=== PATIENT | male | born 1955 | race Caucasian/White ===

== ENCOUNTER → 2017-04-25 | Outpatient (CLI) | payer OTHER | END | disposition home or self-care (01) | LOC: RAD 13:00 | DX: R13.14 Dysphagia, pharyngoesophageal phase (principal) | CPT/HCPCS: 74230; 92611 ==

== ENCOUNTER 2017-06-10 08:35 | Emergency (ER) | payer OTHER ==
[2017-06-10 09:19] LABS: ADD MAN DIFF? NO
[2017-06-10 09:21] LABS: WHITE BLOOD COUNT 6.2 10^3/ul (4.8-10.8)
[2017-06-10 09:21] LABS: BASOPHIL # 0.1 10^3/ul (0.0-0.1); BASOPHILS % 1.1 % (0.0-2.0); EOSINOPHILS # 0.1 10^3/ul (0.0-0.5); EOSINOPHILS % 2.1 % (0.0-7.0); HEMATOCRIT 37.2 % (42.0-52.0); HEMOGLOBIN 12.7 g/dl (14.0-18.0); LYMPHOCYTES # 0.9 10^3/ul (0.8-2.9); MEAN CORPUSCULAR HEMOGLOBIN 30.8 pg (29.0-33.0); MEAN CORPUSCULAR HGB CONC 34.1 g/dl (32.0-37.0); MEAN CORPUSCULAR VOLUME 90.3 fl (82.0-101.0); MEAN PLATELET VOLUME 10.5 fl (7.4-10.4); MONOCYTE # 0.5 10^3/ul (0.3-0.9); MONOCYTES % 7.7 % (0.0-11.0); NEUTROPHIL # 4.6 10^3/ul (1.6-7.5); NEUTROPHILS % 73.5 % (39.0-77.0); PLATELET COUNT 191 10^3/UL (140-415); RED BLOOD COUNT 4.12 10^6/ul (4.70-6.10); RED CELL DISTRIBUTION WIDTH 12.3 % (11.5-14.5)
[2017-06-10] MEDS: ASPIRIN 325 MG TAB PO (09:26)
[2017-06-10] MEDS: LORAZEPAM 1 MG TAB PO (09:26)
[2017-06-10] MEDS ORDERED: LORAZEPAM 2 MG INJ IV (09:30)
[2017-06-10 09:42] LABS: INR 0.89; PROTIME 12.1 Sec (11.9-14.9); PT RATIO 0.9
[2017-06-10 09:43] LABS: ALANINE AMINOTRANSFERASE 49 IU/L (13-69); ALBUMIN 4.1 g/dl (3.3-4.9); ALBUMIN/GLOBULIN RATIO 1.36; ALKALINE PHOSPHATASE 72 IU/L (42-121); ANION GAP 15 (8-16); ASPARTATE AMINO TRANSFERASE 34 IU/L (15-46); BILIRUBIN,INDIRECT 0.1 mg/dl (0-1.1); BILIRUBIN,TOTAL 0.1 mg/dl (0.2-1.3); BLOOD UREA NITROGEN 15 mg/dl (7-20); CALCIUM 8.9 mg/dl (8.4-10.2); CARBON DIOXIDE 26 mmol/L (21-31); CHLORIDE 107 mmol/L (97-110); CREATINE KINASE 164 IU/L (23-200); CREATININE 0.98 mg/dl (0.61-1.24); GLUCOSE 174 mg/dl (70-220); POTASSIUM 4.6 mmol/L (3.5-5.1); SODIUM 143 mmol/L (135-144); TOTAL PROTEIN 7.1 g/dl (6.1-8.1)
[2017-06-10 09:51] LABS: PARTIAL THROMBOPLASTIN TIME 26.9 Sec (25.0-35.0)
[2017-06-10 09:54] LABS: B-TYPE NATRIURETIC PEPTIDE 55 PG/ML (0-125); CK INDEX 0.5
[2017-06-10 09:55] LABS: CK-MB 0.79 ng/ml (0.0-2.4)
[2017-06-10 10:17] LABS: TROPONIN-I < 0.012 ng/ml (0.00-0.12)
[2017-06-10] MEDS: KETOROLAC 60 MG INJ IM (10:58)
== END 2017-06-10 11:04 | disposition home or self-care (01) ==
LOC: E/R 08:35
DX: M94.0 Chondrocostal junction syndrome [Tietze] (principal); F41.9 Anxiety disorder, unspecified; I10 Essential (primary) hypertension; E11.9 Type 2 diabetes mellitus without complications; Z79.84 Long term (current) use of oral hypoglycemic drugs
CPT/HCPCS: 71045; 80053; 82550; 82553; 83880; 84484; 85025; 85610; 85730; 93005; 96372; 99285-25

== ENCOUNTER 2017-11-08 13:53 | Emergency (ER) | payer OTHER ==
[2017-11-08 14:34] LABS: ADD MAN DIFF? NO
[2017-11-08 14:38] LABS: BASOPHIL # 0.1 10^3/ul (0.0-0.1); BASOPHILS % 0.6 % (0.0-2.0); EOSINOPHILS # 0.1 10^3/ul (0.0-0.5); EOSINOPHILS % 0.7 % (0.0-7.0); HEMATOCRIT 37.1 % (42.0-52.0); HEMOGLOBIN 12.2 g/dl (14.0-18.0); LYMPHOCYTES # 1.7 10^3/ul (0.8-2.9); LYMPHOCYTES % 19.9 % (15.0-51.0); MEAN CORPUSCULAR HGB CONC 32.9 g/dl (32.0-37.0); MEAN CORPUSCULAR VOLUME 91.4 fl (82.0-101.0); MEAN PLATELET VOLUME 10.8 fl (7.4-10.4); MONOCYTE # 0.5 10^3/ul (0.3-0.9); MONOCYTES % 6.1 % (0.0-11.0); NEUTROPHIL # 6.3 10^3/ul (1.6-7.5); NEUTROPHILS % 72.1 % (39.0-77.0); PLATELET COUNT 238 10^3/UL (140-415); RED BLOOD COUNT 4.06 10^6/ul (4.70-6.10); RED CELL DISTRIBUTION WIDTH 12.6 % (11.5-14.5)
[2017-11-08 14:38] LABS: WHITE BLOOD COUNT 8.7 10^3/ul (4.8-10.8)
[2017-11-08] MEDS: ONDANSETRON 4 MG INJ IV (14:39)
[2017-11-08] MEDS: morphine 4 MG/ML VIAL IV (14:39)
[2017-11-08 14:56] LABS: ALANINE AMINOTRANSFERASE 51 IU/L (13-69); ALBUMIN 4.3 g/dl (3.3-4.9); ALBUMIN/GLOBULIN RATIO 1.26; ALKALINE PHOSPHATASE 79 IU/L (42-121); ANION GAP 13 (8-16); ASPARTATE AMINO TRANSFERASE 38 IU/L (15-46); BILIRUBIN,INDIRECT 0.4 mg/dl (0-1.1); BILIRUBIN,TOTAL 0.4 mg/dl (0.2-1.3); BLOOD UREA NITROGEN 17 mg/dl (7-20); CALCIUM 9.1 mg/dl (8.4-10.2); CARBON DIOXIDE 23 mmol/L (21-31); CHLORIDE 109 mmol/L (97-110); CREATININE 1.05 mg/dl (0.61-1.24); GLUCOSE 135 mg/dl (70-220); LIPASE 441 U/L (23-300); SODIUM 140 mmol/L (135-144); TOTAL PROTEIN 7.7 g/dl (6.1-8.1)
[2017-11-08] MEDS: LIDOCAINE/MYLANTA 40 ML BTL PO (15:03)
[2017-11-08 15:10] LABS: TROPONIN-I 0.012 ng/ml (0.000-0.120)
[2017-11-08 17:49] LABS: ADD UMIC NO; UR ASCORBIC ACID NEGATIVE (NEGATIVE); UR BILIRUBIN (Dip) NEGATIVE (NEGATIVE); UR BLOOD (Dip) NEGATIVE (NEGATIVE); UR CLARITY CLEAR (CLEAR); UR COLOR STRAW (YELLOW); UR GLUCOSE (Dip) NEGATIVE (NEGATIVE); UR KETONES (Dip) NEGATIVE (NEGATIVE); UR LEUKOCYTE ESTERASE (Dip) NEGATIVE Leu/ul (NEGATIVE); UR NITRITE (Dip) NEGATIVE (NEGATIVE); UR SPECIFIC GRAVITY (Dip) 1.008 (1.003-1.030); UR TOTAL PROTEIN (Dip) NEGATIVE (NEGATIVE); UR UROBILINOGEN (Dip) NEGATIVE (NEGATIVE)
== END 2017-11-08 17:55 | disposition home or self-care (01) ==
LOC: E/R 13:53
DX: R10.12 Left upper quadrant pain (principal); I10 Essential (primary) hypertension; E11.9 Type 2 diabetes mellitus without complications; Z79.84 Long term (current) use of oral hypoglycemic drugs
CPT/HCPCS: 36415; 74176; 80053; 81003; 83690; 84484; 85025; 93005; 96374; 96375; 99285-25

== ENCOUNTER 2017-11-11 13:48 | Emergency (ER) | payer OTHER ==
[2017-11-11 15:04] LABS: LIPASE 153 U/L (23-300)
[2017-11-11] MEDS: FAMOTIDINE 20 MG TAB PO (15:13)
[2017-11-11] MEDS: LIDOCAINE/MYLANTA 40 ML BTL PO (15:13)
[2017-11-11] MEDS: KETOROLAC 30 MG INJ IM (15:13)
[2017-11-11] MEDS: BELLADONNA/PHENOBARBITAL TAB PO (15:13)
== END 2017-11-11 16:28 | disposition home or self-care (01) ==
LOC: E/R 13:48
DX: K29.00 Acute gastritis without bleeding (principal); I10 Essential (primary) hypertension; Z79.84 Long term (current) use of oral hypoglycemic drugs
CPT/HCPCS: 36415; 83690; 93005; 96372; 99284-25

== ENCOUNTER 2017-12-28 11:29 | Day surgery (SDC) | payer OTHER ==
[~2017-12-28 11:29] MED LIST: CEFAZOLIN 1 GM INJ
[2017-12-28] MEDS: HEPARIN 1000 UNITS/ML 10 ML INJ (12:29)
[2017-12-28] MEDS: THROMBIN 5000 UNIT VIAL (12:30)
[2017-12-28] MEDS: POLYMYXIN/BACITRACIN 1L IRRIG (12:30)
[2017-12-28] MEDS ORDERED: GELATIN SIZE 100 SPONGE (12:30)
[2017-12-28] MEDS ORDERED: D5W-0.45 NACL + KCL 20 MEQ 1,000 ML IV (12:52)
[2017-12-28] MEDS ORDERED: CEPASTAT LOZENGE MT (13:00)
[2017-12-28] MEDS ORDERED: DIPHENHYDRAMINE 50 MG INJ IV ×2 (13:00→15:00)
[2017-12-28] MEDS ORDERED: HYDROCODONE/APAP (5/325) TAB PO (13:00)
[2017-12-28] MEDS ORDERED: ONDANSETRON 4 MG INJ IV ×2 (13:00→15:00)
[2017-12-28] MEDS ORDERED: ACETAMINOPHEN 325 MG TAB PO (13:00)
[2017-12-28] MEDS ORDERED: CYCLOBENZAPRINE 10 MG TAB PO (13:00)
[2017-12-28] MEDS ORDERED: PROCHLORPERAZINE 10 MG TAB PO (13:00)
[2017-12-28] MEDS ORDERED: CEFAZOLIN 1 GM/50 ML (PMX) 50 ML IVPB (13:00)
[2017-12-28] MEDS ORDERED: DIPHENHYDRAMINE 25 MG CAP PO (13:00)
[2017-12-28] MEDS ORDERED: NALOXONE (0.4 MG/ML) INJ IV (13:00)
[2017-12-28] MEDS ORDERED: MIDAZOLAM 1 MG/ML 2 ML INJ (13:06)
[2017-12-28] MEDS: CEFAZOLIN 2 GM/50 ML (PMX) 50 ML IVPB (13:22)
[2017-12-28] MEDS ORDERED: SUCCINYLCHOLINE CHLORIDE 100 MG/5 ML SYG IV (13:27)
[2017-12-28] MEDS ORDERED: LIDOCAINE 2% (SDV) 5 ML INJ (13:27)
[2017-12-28] MEDS ORDERED: FAMOTIDINE 20 MG INJ (13:27)
[2017-12-28] MEDS ORDERED: METOCLOPRAMIDE 10 MG INJ (13:27)
[2017-12-28] MEDS ORDERED: ROCURONIUM 50 MG INJ (13:27)
[2017-12-28] MEDS ORDERED: PROPOFOL 20 ML (13:27)
[2017-12-28] MEDS ORDERED: ONDANSETRON 4 MG INJ (13:27)
[2017-12-28] MEDS ORDERED: hydrALAzine 20 MG INJ (13:30)
[2017-12-28] MEDS ORDERED: EPHEDrine SULFATE 50 MG/5 ML SYG (13:54)
[2017-12-28] MEDS: CA CHLORIDE 10% 10 ML SYRINGE (14:09)
[2017-12-28] MEDS ORDERED: SUGAMMADEX SODIUM 200 MG/2 ML VIAL IV (14:18)
[2017-12-28] MEDS: BUPIVACAINE 0.25% (MPF) 30 ML INJ INJ (14:20)
[2017-12-28] MEDS ORDERED: BUPIVACAINE 0.25% (MPF) 30 ML INJ (14:20)
[2017-12-28] MEDS ORDERED: ACETAMINOPHEN 1000MG/100ML IV 100 ML (14:24)
[2017-12-28] MEDS ORDERED: FENTAnyl 50 MCG/ML VIAL IV (15:00)
[2017-12-28] MEDS ORDERED: LABETALOL HCL 20MG INJ IV (15:00)
[2017-12-28] MEDS ORDERED: PROCHLORPERAZINE 10 MG INJ IV (15:00)
[2017-12-28] MEDS ORDERED: hydrALAzine 20 MG INJ IV (15:00)
[2017-12-28] MEDS ORDERED: MEPERIDINE 25 MG INJ IV (15:00)
[2017-12-28] MEDS: HYDROmorphONE 1 MG/5 ML IV SYRINGE IV ×2 (15:05→15:17)
[2017-12-28] MEDS: HYDROmorphONE 0.5 MG/0.5 ML SYG IV (15:24)
[2017-12-28] MEDS: HYDROCODONE/APAP (5/325) TAB PO (15:39)
== END 2017-12-28 16:35 | disposition home or self-care (01) ==
LOC: REC 11:29 → SDS 11:29
DX: T84.498A Other mechanical complication of other internal orthopedic devices, implants and grafts, initial encounter (principal); Y79.3 Surgical instruments, materials and orthopedic devices (including sutures) associated with adverse incidents; Y83.8 Other surgical procedures as the cause of abnormal reaction of the patient, or of later complication, without mention of misadventure at the time of the procedure; E11.9 Type 2 diabetes mellitus without complications; I10 Essential (primary) hypertension
CPT/HCPCS: 22849; 72110; 82962; 86999; 88300

== ENCOUNTER 2018-01-24 12:34 | Day surgery (SDC) | payer OTHER ==
[2018-01-24] MEDS ORDERED: LIDOCAINE 100 MG SYRINGE ×2 (14:43→15:01)
[2018-01-24] MEDS ORDERED: PHENYLephrine (100 MCG/ML) 5ML SYG (14:43)
[2018-01-24] MEDS ORDERED: EPHEDrine 50 MG INJ (14:43)
[2018-01-24] MEDS ORDERED: PROPOFOL 60 ML (14:43)
== END 2018-01-24 17:14 | disposition home or self-care (01) ==
LOC: GIL 12:34
DX: Z86.010 Personal history of colon polyps (principal); K29.50 Unspecified chronic gastritis without bleeding; I10 Essential (primary) hypertension; E11.9 Type 2 diabetes mellitus without complications
CPT/HCPCS: 43239; 82962; 88305; 88312

== ENCOUNTER 2018-03-04 14:56 | Emergency (ER) | payer OTHER ==
[2018-03-04 18:47] LABS: ADD MAN DIFF? NO
[2018-03-04 18:49] LABS: BASOPHIL # 0.1 10^3/ul (0.0-0.1); BASOPHILS % 0.8 % (0.0-2.0); EOSINOPHILS # 0.3 10^3/ul (0.0-0.5); EOSINOPHILS % 4.7 % (0.0-7.0); HEMATOCRIT 38.2 % (42.0-52.0); HEMOGLOBIN 12.5 g/dl (14.0-18.0); LYMPHOCYTES # 1.2 10^3/ul (0.8-2.9); LYMPHOCYTES % 19.5 % (15.0-51.0); MEAN CORPUSCULAR HEMOGLOBIN 29.7 pg (29.0-33.0); MEAN CORPUSCULAR HGB CONC 32.7 g/dl (32.0-37.0); MEAN CORPUSCULAR VOLUME 90.7 fl (82.0-101.0); MEAN PLATELET VOLUME 12.1 fl (7.4-10.4); MONOCYTE # 0.5 10^3/ul (0.3-0.9); MONOCYTES % 7.7 % (0.0-11.0); NEUTROPHILS % 66.8 % (39.0-77.0); PLATELET COUNT 220 10^3/UL (140-415); RED BLOOD COUNT 4.21 10^6/ul (4.70-6.10); RED CELL DISTRIBUTION WIDTH 12.6 % (11.5-14.5)
[2018-03-04 18:53] LABS: INR 0.85; PARTIAL THROMBOPLASTIN TIME 27.4 Sec (23.0-35.0); PROTIME 11.7 Sec (11.9-14.9); PT RATIO 0.9
[2018-03-04 18:58] LABS: ALANINE AMINOTRANSFERASE 56 IU/L (13-69); ALBUMIN 3.7 g/dl (3.3-4.9); ALBUMIN/GLOBULIN RATIO 1.05; ALKALINE PHOSPHATASE 111 IU/L (42-121); ANION GAP 10 (5-13); ASPARTATE AMINO TRANSFERASE 52 IU/L (15-46); BLOOD UREA NITROGEN 17 mg/dl (7-20); CALCIUM 9.4 mg/dl (8.4-10.2); CARBON DIOXIDE 27 mmol/L (21-31); CHLORIDE 102 mmol/L (97-110); CREATININE 1.13 mg/dl (0.61-1.24); Estimated GFR > 60 mL/min (>60); GLUCOSE 321 mg/dl (70-220); MAGNESIUM 1.8 mg/dl (1.7-2.5); POTASSIUM 4.4 mmol/L (3.5-5.1); SODIUM 139 mmol/L (135-144); TOTAL PROTEIN 7.2 g/dl (6.1-8.1)
[2018-03-04 19:03] LABS: ADD UMIC YES; UR ASCORBIC ACID 40 mg/dL (NEGATIVE); UR BILIRUBIN (Dip) NEGATIVE (NEGATIVE); UR BLOOD (Dip) NEGATIVE (NEGATIVE); UR CLARITY CLEAR (CLEAR); UR COLOR YELLOW (YELLOW); UR GLUCOSE (Dip) 3+ mg/dL (NEGATIVE); UR KETONES (Dip) NEGATIVE (NEGATIVE); UR LEUKOCYTE ESTERASE (Dip) NEGATIVE Leu/ul (NEGATIVE); UR MUCUS FEW /HPF (NONE SEEN); UR NITRITE (Dip) NEGATIVE (NEGATIVE); UR RBC 1 /HPF (0-5); UR SPECIFIC GRAVITY (Dip) 1.027 (1.003-1.030); UR TOTAL PROTEIN (Dip) 1+ mg/dl (NEGATIVE); UR UROBILINOGEN (Dip) NEGATIVE (NEGATIVE); UR WBC 1 /HPF (0-5)
[2018-03-04 19:10] LABS: TROPONIN-I < 0.012 ng/ml (0.000-0.120)
[2018-03-04] MEDS: SOD CHLORIDE 0.9% 1,000 ML IV (19:16)
[2018-03-04] MEDS: ASPIRIN 325 MG TAB PO (21:20)
== END 2018-03-04 21:25 | disposition home or self-care (01) ==
LOC: E/R 14:56
DX: R29.810 Facial weakness (principal); E11.65 Type 2 diabetes mellitus with hyperglycemia; I10 Essential (primary) hypertension; Z79.84 Long term (current) use of oral hypoglycemic drugs
CPT/HCPCS: 36415; 70450; 71045; 80053; 81001; 82962; 83735; 84484; 85025; 85610; 85730; 93005; 99285-25

== ENCOUNTER 2018-03-07 07:59 | Inpatient (IN) | payer OTHER ==
[2018-03-07] MEDS: SOD CHLORIDE 0.9% 1,000 ML IV (08:41)
[2018-03-07 08:46] LABS: ADD MAN DIFF? NO
[2018-03-07 08:48] LABS: BASOPHIL # 0.1 10^3/ul (0.0-0.1); BASOPHILS % 1.2 % (0.0-2.0); EOSINOPHILS # 0.2 10^3/ul (0.0-0.5); EOSINOPHILS % 3.5 % (0.0-7.0); HEMATOCRIT 40.8 % (42.0-52.0); HEMOGLOBIN 13.4 g/dl (14.0-18.0); LYMPHOCYTES # 1.5 10^3/ul (0.8-2.9); LYMPHOCYTES % 23.3 % (15.0-51.0); MEAN CORPUSCULAR HEMOGLOBIN 29.7 pg (29.0-33.0); MEAN CORPUSCULAR HGB CONC 32.8 g/dl (32.0-37.0); MEAN CORPUSCULAR VOLUME 90.5 fl (82.0-101.0); MEAN PLATELET VOLUME 11.3 fl (7.4-10.4); MONOCYTE # 0.4 10^3/ul (0.3-0.9); MONOCYTES % 6.5 % (0.0-11.0); NEUTROPHIL # 4.3 10^3/ul (1.6-7.5); NEUTROPHILS % 64.3 % (39.0-77.0); PLATELET COUNT 206 10^3/UL (140-415); RED BLOOD COUNT 4.51 10^6/ul (4.70-6.10); RED CELL DISTRIBUTION WIDTH 12.8 % (11.5-14.5)
[2018-03-07 08:48] LABS: WHITE BLOOD COUNT 6.6 10^3/ul (4.8-10.8)
[2018-03-07 09:06] LABS: ALANINE AMINOTRANSFERASE 70 IU/L (13-69); ALBUMIN 4.6 g/dl (3.3-4.9); ALBUMIN/GLOBULIN RATIO 1.17; ALKALINE PHOSPHATASE 120 IU/L (42-121); ANION GAP 11 (5-13); ASPARTATE AMINO TRANSFERASE 78 IU/L (15-46); BILIRUBIN,INDIRECT 0.3 mg/dl (0-1.1); BILIRUBIN,TOTAL 0.3 mg/dl (0.2-1.3); BLOOD UREA NITROGEN 13 mg/dl (7-20); CALCIUM 9.4 mg/dl (8.4-10.2); CARBON DIOXIDE 26 mmol/L (21-31); CHLORIDE 104 mmol/L (97-110); CREATININE 0.91 mg/dl (0.61-1.24); Estimated GFR > 60 mL/min (>60); GLUCOSE 332 mg/dl (70-220); MAGNESIUM 1.6 mg/dl (1.7-2.5); PHOSPHORUS 3.3 mg/dl (2.5-4.9); POTASSIUM 4.7 mmol/L (3.5-5.1); SODIUM 141 mmol/L (135-144); TOTAL PROTEIN 8.5 g/dl (6.1-8.1)
[2018-03-07 09:07] LABS: LACTIC ACID 1.9 mmol/L (0.5-2.0)
[2018-03-07 09:07] LABS: INR 0.83; PROTIME 11.5 Sec (11.9-14.9); PT RATIO 0.9
[2018-03-07 09:16] LABS: TROPONIN-I < 0.012 ng/ml (0.000-0.120)
[2018-03-07 09:19] LABS: HEMOGLOBIN A1C 8.2 % (0-5.9)
[2018-03-07 09:21] LABS: ADD UMIC YES; UR ASCORBIC ACID NEGATIVE (NEGATIVE); UR BILIRUBIN (Dip) NEGATIVE (NEGATIVE); UR BLOOD (Dip) NEGATIVE (NEGATIVE); UR CLARITY CLEAR (CLEAR); UR COLOR YELLOW (YELLOW); UR GLUCOSE (Dip) 3+ mg/dL (NEGATIVE); UR KETONES (Dip) NEGATIVE (NEGATIVE); UR LEUKOCYTE ESTERASE (Dip) NEGATIVE Leu/ul (NEGATIVE); UR NITRITE (Dip) NEGATIVE (NEGATIVE); UR RBC 0 /HPF (0-5); UR SPECIFIC GRAVITY (Dip) 1.021 (1.003-1.030); UR TOTAL PROTEIN (Dip) 1+ mg/dl (NEGATIVE); UR UROBILINOGEN (Dip) NEGATIVE (NEGATIVE); UR WBC 1 /HPF (0-5)
[2018-03-07 09:48] LABS: MODE ROOM AIR; MetHgb Venous 0.3 %; Sample Type Blood venous; Site OTHER; Venous COHb 0.5 %; Venous Fraction OxyHgb 62.3 %; Venous Oxygen Sat 62.8 mmHG (55.0-75.0); Venous Total Hemglobin 13.1 g/dl
[2018-03-07] MEDS: INSULIN LISPRO 100 UNIT/ML VIAL SC (10:36)
[2018-03-07] MEDS ORDERED: NACL 0.9% 3 ML SYG IV (13:00)
[2018-03-07] MEDS ORDERED: GLUCAGON 1 MG INJ IM (13:00)
[2018-03-07] MEDS ORDERED: ONDANSETRON 4 MG INJ IV (13:00)
[2018-03-07] MEDS ORDERED: GLUCOSE GEL 15 GRAM TUBE PO ×2 (13:00)
[2018-03-07] MEDS ORDERED: GLUCOSE GEL 15 GRAM TUBE BUCCAL (13:00)
[2018-03-07] MEDS ORDERED: DEXTROSE 50% 50 ML SYRINGE IV ×2 (13:00)
[2018-03-07] MEDS ORDERED: hydrALAzine 20 MG INJ IV (14:00)
[2018-03-07] MEDS: SOD CHLORIDE 0.9% 100 ML (15:11)
[2018-03-07] MEDS: IOHEXOL 100 ML (15:11)
[2018-03-07] MEDS: LINAGLIPTIN 5 MG TABLET PO (15:18)
[2018-03-07] MEDS: GABAPENTIN 300 MG CAP PO ×2 (15:18→20:25)
[2018-03-07] MEDS: FERROUS SULFATE (EC) 325 MG TAB PO ×2 (15:18→20:25)
[2018-03-07] MEDS: MAGNESIUM SULFATE 2 GM/50 ML 50 ML IVPB (15:21)
[2018-03-07] MEDS: metFORMIN 500 MG TAB PO (17:55)
[2018-03-07] MEDS: INSULIN GLARGINE [LANTus] (100 UNITS/ML) SYG SC (18:03)
[2018-03-07] MEDS: INSULIN ASPART [NOVOLOG] 3 ML PEN SC ×2 (18:03→20:32)
[2018-03-07] MEDS: DOCUSATE SODIUM 100 MG CAP PO (20:25)
[2018-03-07] MEDS: LISINOPRIL 20 MG TAB PO (20:25)
[2018-03-07] MEDS: ATORVASTATIN 10 MG TAB PO (20:25)
[2018-03-07] MEDS ORDERED: NON-FORMULARY/PATIENT OWN MED (Sitagliptin Phos/Metformin HCl (Janumet 50-1,000 mg Tablet) PO (21:00)
[2018-03-07] MEDS ORDERED: NON-FORMULARY/PATIENT OWN MED (Lovastatin* 10 MG) PO (21:00)
[2018-03-07] MEDS: ACETAMINOPHEN 325 MG TAB PO (21:18)
[2018-03-08] MEDS: ZOLPIDEM 5 MG TAB PO (00:08)
[2018-03-08] MEDS: ACCU-CHEK XX (02:45)
[2018-03-08] MEDS: PANTOPRAZOLE (EC) 40 MG TAB PO (06:23)
[2018-03-08] MEDS: metFORMIN 500 MG TAB PO (08:01)
[2018-03-08] MEDS: INSULIN ASPART [NOVOLOG] 3 ML PEN SC (08:06)
[2018-03-08] MEDS: INSULIN GLARGINE [LANTus] (100 UNITS/ML) SYG SC (08:12)
[2018-03-08 08:19] LABS: ADD MAN DIFF? NO
[2018-03-08 08:22] LABS: BASOPHIL # 0.1 10^3/ul (0.0-0.1); BASOPHILS % 1.1 % (0.0-2.0); EOSINOPHILS # 0.2 10^3/ul (0.0-0.5); EOSINOPHILS % 3.5 % (0.0-7.0); HEMATOCRIT 36.3 % (42.0-52.0); HEMOGLOBIN 11.8 g/dl (14.0-18.0); LYMPHOCYTES # 1.5 10^3/ul (0.8-2.9); LYMPHOCYTES % 23.8 % (15.0-51.0); MEAN CORPUSCULAR HEMOGLOBIN 29.4 pg (29.0-33.0); MEAN CORPUSCULAR HGB CONC 32.5 g/dl (32.0-37.0); MEAN CORPUSCULAR VOLUME 90.5 fl (82.0-101.0); MEAN PLATELET VOLUME 12.3 fl (7.4-10.4); MONOCYTE # 0.4 10^3/ul (0.3-0.9); MONOCYTES % 6.5 % (0.0-11.0); NEUTROPHIL # 4.2 10^3/ul (1.6-7.5); NEUTROPHILS % 64.3 % (39.0-77.0); PLATELET COUNT 193 10^3/UL (140-415); RED BLOOD COUNT 4.01 10^6/ul (4.70-6.10); RED CELL DISTRIBUTION WIDTH 12.7 % (11.5-14.5)
[2018-03-08 08:22] LABS: WHITE BLOOD COUNT 6.5 10^3/ul (4.8-10.8)
[2018-03-08 08:56] LABS: ALANINE AMINOTRANSFERASE 67 IU/L (13-69); ALBUMIN 3.7 g/dl (3.3-4.9); ALBUMIN/GLOBULIN RATIO 1.23; ALKALINE PHOSPHATASE 102 IU/L (42-121); ANION GAP 7 (5-13); ASPARTATE AMINO TRANSFERASE 64 IU/L (15-46); BILIRUBIN,INDIRECT 0.3 mg/dl (0-1.1); BILIRUBIN,TOTAL 0.3 mg/dl (0.2-1.3); BLOOD UREA NITROGEN 14 mg/dl (7-20); CARBON DIOXIDE 26 mmol/L (21-31); CHLORIDE 106 mmol/L (97-110); CHOL/HDL RATIO 5.2 RATIO; CHOLESTEROL 168 mg/dl (100-200); CREATININE 0.98 mg/dl (0.61-1.24); Estimated GFR > 60 mL/min (>60); GLUCOSE 228 mg/dl (70-220); HDL CHOLESTEROL 32 mg/dl (30-78); LDL CHOLESTEROL,CALCULATED 111 mg/dl; MAGNESIUM 1.8 mg/dl (1.7-2.5); PHOSPHORUS 3.8 mg/dl (2.5-4.9); POTASSIUM 4.3 mmol/L (3.5-5.1); SODIUM 139 mmol/L (135-144); TOTAL PROTEIN 6.7 g/dl (6.1-8.1); TRIGLYCERIDES 126 mg/dl (0-149)
[2018-03-08] MEDS: AL HYDROX/MG HYDROX/SIMETH 30 ML CUP PO (09:30)
[2018-03-08] MEDS: ASPIRIN (EC) 81 MG TAB PO (09:30)
[2018-03-08] MEDS: LINAGLIPTIN 5 MG TABLET PO (09:31)
[2018-03-08] MEDS: GABAPENTIN 300 MG CAP PO (09:31)
[2018-03-08] MEDS: FERROUS SULFATE (EC) 325 MG TAB PO (09:31)
[2018-03-08] MEDS: SENNA TAB PO (09:31)
[2018-03-08] MEDS: FINASTERIDE 5 MG TAB PO (09:31)
[2018-03-08] MEDS: LISINOPRIL 20 MG TAB PO (09:32)
[2018-03-08] MEDS: AMLODIPINE 10 MG TAB PO (09:32)
[2018-03-08] MEDS: CYCLOBENZAPRINE 10 MG TAB PO (09:32)
[2018-03-08] MEDS ORDERED: ALFUZOSIN (SR) 10 MG TAB PO ×2 (21:00)
== END 2018-03-08 12:20 | disposition home or self-care (01) | DRG 103 ==
LOC: E/R 07:59 → TEL 11:01
DX: G43.909 Migraine, unspecified, not intractable, without status migrainosus (principal); E11.65 Type 2 diabetes mellitus with hyperglycemia; I10 Essential (primary) hypertension; N40.0 Benign prostatic hyperplasia without lower urinary tract symptoms; E11.40 Type 2 diabetes mellitus with diabetic neuropathy, unspecified; E78.00 Pure hypercholesterolemia, unspecified; Z87.891 Personal history of nicotine dependence; R59.9 Enlarged lymph nodes, unspecified; F41.9 Anxiety disorder, unspecified
CPT/HCPCS: 36415; 70450; 70496; 70498; 70551; 80053; 80061; 81001; 82803; 82962; 83036; 83605; 83735; 84100; 84443; 84484; 85025; 85610; 85730; 92610; 93005; 93306; 96372; 97161; 99285-25

== ENCOUNTER 2018-03-14 08:54 | Day surgery (SDC) | payer OTHER ==
[2018-03-14] MEDS ORDERED: DIPHENHYDRAMINE 50 MG INJ IV (11:00)
[2018-03-14] MEDS ORDERED: HYDROmorphONE 1 MG/5 ML IV SYRINGE IV ×3 (11:00)
[2018-03-14] MEDS ORDERED: ONDANSETRON 4 MG INJ IV (11:00)
[2018-03-14] MEDS ORDERED: OXYCODONE/ACETAMINOPHEN (5/325) TAB PO ×2 (11:00)
[2018-03-14] MEDS ORDERED: hydrALAzine 20 MG INJ IV (11:00)
[2018-03-14] MEDS ORDERED: LABETALOL HCL 20MG INJ IV (11:00)
[2018-03-14] MEDS ORDERED: PROPOFOL 20 ML (11:01)
[2018-03-14] MEDS ORDERED: METOCLOPRAMIDE 10 MG INJ (11:01)
[2018-03-14] MEDS ORDERED: FENTAnyl 50 MCG/ML VIAL (11:01)
[2018-03-14] MEDS ORDERED: MIDAZOLAM 1 MG/ML 2 ML INJ (11:01)
[2018-03-14] MEDS ORDERED: CEFAZOLIN 1 GM INJ (11:01)
[2018-03-14] MEDS ORDERED: ONDANSETRON 4 MG INJ (11:01)
[2018-03-14] MEDS: MEPERIDINE 25 MG INJ IV (13:15)
[2018-03-14] MEDS ORDERED: morphine 2 MG INJ IV (13:30)
== END 2018-03-14 14:22 | disposition home or self-care (01) ==
LOC: SDS 08:54
DX: M23.221 Derangement of posterior horn of medial meniscus due to old tear or injury, right knee (principal); M94.261 Chondromalacia, right knee; I10 Essential (primary) hypertension; E11.9 Type 2 diabetes mellitus without complications
CPT/HCPCS: 29881; 82962

== ENCOUNTER 2018-07-31 12:43 | Emergency (ER) | payer MEDICARE, MEDICAID, OTHER ==
[2018-07-31] MEDS: IBUPROFEN 800 MG TAB PO (14:41)
[2018-07-31] MEDS: ACETAMINOPHEN 500 MG TAB PO (14:41)
== END 2018-07-31 15:25 | disposition home or self-care (01) ==
LOC: FTE 12:43
DX: R05 Cough (principal); I10 Essential (primary) hypertension; E11.9 Type 2 diabetes mellitus without complications; Z79.84 Long term (current) use of oral hypoglycemic drugs
CPT/HCPCS: 71045; 87400; 99284-25

== ENCOUNTER 2018-08-06 15:59 | Observation (INO) | payer MEDICARE, MEDICAID ==
[2018-08-06 16:50] LABS: ADD MAN DIFF? NO
[2018-08-06] MEDS: ASPIRIN 81 MG TAB PO (16:52)
[2018-08-06] MEDS: IBUPROFEN 600 MG TAB PO (16:52)
[2018-08-06 16:55] LABS: BASOPHIL # 0.1 10^3/ul (0.0-0.1); BASOPHILS % 0.8 % (0.0-2.0); EOSINOPHILS # 0.4 10^3/ul (0.0-0.5); EOSINOPHILS % 5.1 % (0.0-7.0); HEMATOCRIT 37.4 % (42.0-52.0); LYMPHOCYTES # 2.1 10^3/ul (0.8-2.9); LYMPHOCYTES % 28.6 % (15.0-51.0); MEAN CORPUSCULAR HEMOGLOBIN 29.1 pg (29.0-33.0); MEAN CORPUSCULAR HGB CONC 32.1 g/dl (32.0-37.0); MEAN CORPUSCULAR VOLUME 90.8 fl (82.0-101.0); MEAN PLATELET VOLUME 10.5 fl (7.4-10.4); MONOCYTE # 0.5 10^3/ul (0.3-0.9); MONOCYTES % 6.9 % (0.0-11.0); NEUTROPHIL # 4.2 10^3/ul (1.6-7.5); NEUTROPHILS % 57.9 % (39.0-77.0); PLATELET COUNT 215 10^3/UL (140-415); RED BLOOD COUNT 4.12 10^6/ul (4.70-6.10); RED CELL DISTRIBUTION WIDTH 13.4 % (11.5-14.5)
[2018-08-06 16:55] LABS: WHITE BLOOD COUNT 7.2 10^3/ul (4.8-10.8)
[2018-08-06 17:14] LABS: ALANINE AMINOTRANSFERASE 50 IU/L (13-69); ALBUMIN/GLOBULIN RATIO 1.29; ALKALINE PHOSPHATASE 76 IU/L (42-121); ANION GAP 8 (5-13); ASPARTATE AMINO TRANSFERASE 45 IU/L (15-46); BILIRUBIN,INDIRECT 0.3 mg/dl (0-1.1); BILIRUBIN,TOTAL 0.3 mg/dl (0.2-1.3); BLOOD UREA NITROGEN 18 mg/dl (7-20); CALCIUM 9.1 mg/dl (8.4-10.2); CARBON DIOXIDE 22 mmol/L (21-31); CHLORIDE 109 mmol/L (97-110); CREATININE 1.18 mg/dl (0.61-1.24); Estimated GFR > 60 mL/min (>60); GLUCOSE 129 mg/dl (70-220); INR 0.96; LIPASE 167 U/L (23-300); POTASSIUM 4.6 mmol/L (3.5-5.1); PROTIME 12.9 Sec (11.9-14.9); SODIUM 139 mmol/L (135-144); TOTAL PROTEIN 7.1 g/dl (6.1-8.1)
[2018-08-06 17:15] LABS: PARTIAL THROMBOPLASTIN TIME 27.4 Sec (23.0-35.0)
[2018-08-06 17:24] LABS: B-TYPE NATRIURETIC PEPTIDE 24 PG/ML (0-125); TROPONIN-I < 0.012 ng/ml (0.000-0.120)
[2018-08-06] MEDS ORDERED: ACETAMINOPHEN 325 MG TAB PO (20:30)
[2018-08-06] MEDS ORDERED: ONDANSETRON 4 MG INJ IV (20:30)
[2018-08-06] MEDS ORDERED: MAGNESIUM HYDROXIDE 30ML CUP PO (20:30)
[2018-08-06] MEDS ORDERED: NACL 0.9% 3 ML SYG IV (20:30)
[2018-08-06] MEDS ORDERED: IBUPROFEN 600 MG TAB PO (20:30)
[2018-08-06] MEDS ORDERED: NON-FORMULARY/PATIENT OWN MED (Eplerenone (Inspra) 25 MG) PO (21:00)
[2018-08-06] MEDS ORDERED: ACCU-CHEK XX (21:00)
[2018-08-06] MEDS: NITROGLYCERIN (SL) 0.4 MG TAB SL (22:10)
[2018-08-06] MEDS: ENOXAPARIN 30 MG/0.3 ML SYG SC (22:15)
[2018-08-06] MEDS ORDERED: DEXTROSE 50% 50 ML SYRINGE IV ×2 (22:30)
[2018-08-06] MEDS ORDERED: GLUCOSE GEL 15 GRAM TUBE BUCCAL (22:30)
[2018-08-06] MEDS ORDERED: GLUCAGON 1 MG INJ IM (22:30)
[2018-08-06] MEDS ORDERED: GLUCOSE GEL 15 GRAM TUBE PO ×2 (22:30)
[2018-08-06] MEDS: ACCU-CHEK XX (23:10)
[2018-08-06] MEDS: GABAPENTIN 300 MG CAP PO (23:40)
[2018-08-06] MEDS: morphine 2 MG INJ IV (23:40)
[2018-08-06] MEDS: FAMOTIDINE 20 MG TAB PO (23:43)
[2018-08-06] MEDS: ALFUZOSIN (SR) 10 MG TAB PO (23:43)
[2018-08-06] MEDS: SENNA TAB PO (23:43)
[2018-08-06] MEDS: LISINOPRIL 20 MG TAB PO (23:46)
[2018-08-06] MEDS: ZOLPIDEM 5 MG TAB PO (23:53)
[2018-08-07] MEDS: ENOXAPARIN 30 MG/0.3 ML SYG SC ×2 (00:03→08:43)
[2018-08-07 01:11] LABS: CREATINE KINASE 313 IU/L (23-200)
[2018-08-07 01:24] LABS: CK INDEX 0.6; CK-MB 1.83 ng/ml (0.0-2.4); TROPONIN-I < 0.012 ng/ml (0.000-0.120)
[2018-08-07] MEDS: morphine 2 MG INJ IV ×4 (03:34→20:49)
[2018-08-07] MEDS: ACCU-CHEK XX ×4 (07:25→21:00)
[2018-08-07] MEDS: SENNA TAB PO ×2 (08:25→20:41)
[2018-08-07] MEDS: metFORMIN 500 MG TAB PO ×2 (08:25→17:03)
[2018-08-07] MEDS: FAMOTIDINE 20 MG TAB PO ×2 (08:25→20:41)
[2018-08-07] MEDS: FINASTERIDE 5 MG TAB PO (08:26)
[2018-08-07] MEDS: glipiZIDE 10 MG TAB PO ×2 (08:26→17:03)
[2018-08-07] MEDS: AMLODIPINE 10 MG TAB PO (08:27)
[2018-08-07] MEDS: GABAPENTIN 300 MG CAP PO ×2 (08:27→20:41)
[2018-08-07] MEDS: EMPAGLIFLOZIN 10 MG TABLET PO (08:27)
[2018-08-07] MEDS: PANTOPRAZOLE (EC) 40 MG TAB PO (08:27)
[2018-08-07] MEDS: LISINOPRIL 20 MG TAB PO ×2 (08:28→20:41)
[2018-08-07] MEDS: ASPIRIN (EC) 325 MG TAB PO (08:28)
[2018-08-07 08:44] LABS: ADD MAN DIFF? NO
[2018-08-07 08:49] LABS: BASOPHIL # 0.1 10^3/ul (0.0-0.1); BASOPHILS % 1.1 % (0.0-2.0); EOSINOPHILS # 0.3 10^3/ul (0.0-0.5); EOSINOPHILS % 4.3 % (0.0-7.0); HEMATOCRIT 37.4 % (42.0-52.0); HEMOGLOBIN 12.2 g/dl (14.0-18.0); LYMPHOCYTES # 1.7 10^3/ul (0.8-2.9); LYMPHOCYTES % 26.1 % (15.0-51.0); MEAN CORPUSCULAR HGB CONC 32.6 g/dl (32.0-37.0); MEAN PLATELET VOLUME 11.4 fl (7.4-10.4); MONOCYTE # 0.4 10^3/ul (0.3-0.9); MONOCYTES % 6.6 % (0.0-11.0); NEUTROPHILS % 61.3 % (39.0-77.0); PLATELET COUNT 210 10^3/UL (140-415); RED CELL DISTRIBUTION WIDTH 13.6 % (11.5-14.5)
[2018-08-07 08:49] LABS: WHITE BLOOD COUNT 6.6 10^3/ul (4.8-10.8)
[2018-08-07 09:11] LABS: ALANINE AMINOTRANSFERASE 52 IU/L (13-69); ALBUMIN 3.7 g/dl (3.3-4.9); ALBUMIN/GLOBULIN RATIO 1.27; ALKALINE PHOSPHATASE 77 IU/L (42-121); ANION GAP 10 (5-13); ASPARTATE AMINO TRANSFERASE 42 IU/L (15-46); BILIRUBIN,INDIRECT 0.1 mg/dl (0-1.1); BILIRUBIN,TOTAL 0.1 mg/dl (0.2-1.3); BLOOD UREA NITROGEN 18 mg/dl (7-20); CALCIUM 9.2 mg/dl (8.4-10.2); CARBON DIOXIDE 24 mmol/L (21-31); CHLORIDE 105 mmol/L (97-110); CHOL/HDL RATIO 3.4 RATIO; CHOLESTEROL 133 mg/dl (100-200); CREATININE 0.93 mg/dl (0.61-1.24); Estimated GFR > 60 mL/min (>60); GLUCOSE 155 mg/dl (70-220); HDL CHOLESTEROL 39 mg/dl (30-78); LDL CHOLESTEROL,CALCULATED 54 mg/dl; MAGNESIUM 1.6 mg/dl (1.7-2.5); POTASSIUM 4.6 mmol/L (3.5-5.1); SODIUM 139 mmol/L (135-144); TOTAL PROTEIN 6.6 g/dl (6.1-8.1); TRIGLYCERIDES 202 mg/dl (0-149)
[2018-08-07 09:14] LABS: CREATINE KINASE 261 IU/L (23-200)
[2018-08-07 09:21] LABS: CK INDEX 0.5; CK-MB 1.28 ng/ml (0.0-2.4); TROPONIN-I < 0.012 ng/ml (0.000-0.120)
[2018-08-07 09:25] LABS: HEMOGLOBIN A1C 8.7 % (0-5.9)
[2018-08-07 13:17] LABS: CREATINE KINASE 243 IU/L (23-200)
[2018-08-07 13:30] LABS: CK INDEX 0.5; CK-MB 1.12 ng/ml (0.0-2.4); TROPONIN-I < 0.012 ng/ml (0.000-0.120)
[2018-08-07] MEDS: ATORVASTATIN 10 MG TAB PO (20:40)
[2018-08-07] MEDS: ALFUZOSIN (SR) 10 MG TAB PO (20:44)
[2018-08-07] MEDS: [UNRECOGNIZED DRUG - OTHER] XX (22:30)
[2018-08-08] MEDS: [UNRECOGNIZED DRUG - OTHER] XX ×3 (05:29→22:30)
[2018-08-08] MEDS: PANTOPRAZOLE (EC) 40 MG TAB PO (07:17)
[2018-08-08] MEDS: morphine 2 MG INJ IV ×3 (07:17→21:59)
[2018-08-08] MEDS: ACCU-CHEK XX ×4 (07:25→21:00)
[2018-08-08] MEDS: glipiZIDE 10 MG TAB PO ×2 (07:25→17:19)
[2018-08-08] MEDS: metFORMIN 500 MG TAB PO ×2 (07:43→17:19)
[2018-08-08] MEDS: GABAPENTIN 300 MG CAP PO ×2 (08:51→21:01)
[2018-08-08] MEDS: SENNA TAB PO ×2 (08:52→21:01)
[2018-08-08] MEDS: LISINOPRIL 20 MG TAB PO ×2 (08:52→21:01)
[2018-08-08] MEDS: FINASTERIDE 5 MG TAB PO (08:52)
[2018-08-08] MEDS: FAMOTIDINE 20 MG TAB PO ×2 (08:53→21:01)
[2018-08-08] MEDS: AMLODIPINE 10 MG TAB PO (08:53)
[2018-08-08] MEDS: ASPIRIN (EC) 325 MG TAB PO (08:53)
[2018-08-08] MEDS: EMPAGLIFLOZIN 10 MG TABLET PO (08:57)
[2018-08-08] MEDS: ENOXAPARIN 30 MG/0.3 ML SYG SC (08:57)
[2018-08-08] MEDS: DOCUSATE SODIUM 100 MG CAP PO (10:13)
[2018-08-08] MEDS: REGADENOSON 0.4 MG/5 ML SYG (12:30)
[2018-08-08] MEDS: ATORVASTATIN 10 MG TAB PO (21:00)
[2018-08-08] MEDS: ALFUZOSIN (SR) 10 MG TAB PO (21:01)
[2018-08-08] MEDS: ZOLPIDEM 5 MG TAB PO (22:35)
[2018-08-09] MEDS: [UNRECOGNIZED DRUG - OTHER] XX ×2 (06:11→14:30)
[2018-08-09 07:19] LABS: ANION GAP 11 (5-13); BLOOD UREA NITROGEN 24 mg/dl (7-20); CALCIUM 9.4 mg/dl (8.4-10.2); CARBON DIOXIDE 24 mmol/L (21-31); CHLORIDE 105 mmol/L (97-110); CREATININE 1.05 mg/dl (0.61-1.24); Estimated GFR > 60 mL/min (>60); GLUCOSE 120 mg/dl (70-220); POTASSIUM 4.3 mmol/L (3.5-5.1); SODIUM 140 mmol/L (135-144)
[2018-08-09] MEDS: ACCU-CHEK XX ×2 (07:25→11:20)
[2018-08-09] MEDS: PANTOPRAZOLE (EC) 40 MG TAB PO (08:28)
[2018-08-09] MEDS: GABAPENTIN 300 MG CAP PO (08:29)
[2018-08-09] MEDS: SENNA TAB PO (08:29)
[2018-08-09] MEDS: FINASTERIDE 5 MG TAB PO (08:29)
[2018-08-09] MEDS: glipiZIDE 10 MG TAB PO (08:29)
[2018-08-09] MEDS: EMPAGLIFLOZIN 10 MG TABLET PO (08:30)
[2018-08-09] MEDS: ASPIRIN (EC) 325 MG TAB PO (08:30)
[2018-08-09] MEDS: DOCUSATE SODIUM 100 MG CAP PO (08:30)
[2018-08-09] MEDS: AMLODIPINE 10 MG TAB PO (08:30)
[2018-08-09] MEDS: LISINOPRIL 20 MG TAB PO (08:31)
[2018-08-09] MEDS: ENOXAPARIN 30 MG/0.3 ML SYG SC (08:36)
[2018-08-09] MEDS: metFORMIN 500 MG TAB PO (08:44)
[2018-08-09] MEDS: FAMOTIDINE 20 MG TAB PO (08:44)
[2018-08-09] MEDS: morphine 2 MG INJ IV (08:44)
[2018-08-10] MEDS ORDERED: ISOSORBIDE MONONITRATE(SR)30 MG TAB PO (09:00)
== END 2018-08-09 15:50 | disposition home or self-care (01) ==
LOC: E/R 15:59 → TEL 17:58
DX: R07.9 Chest pain, unspecified (principal); I10 Essential (primary) hypertension; Z79.84 Long term (current) use of oral hypoglycemic drugs; E11.40 Type 2 diabetes mellitus with diabetic neuropathy, unspecified; E78.5 Hyperlipidemia, unspecified; E78.00 Pure hypercholesterolemia, unspecified; M10.9 Gout, unspecified; D64.9 Anemia, unspecified; N40.0 Benign prostatic hyperplasia without lower urinary tract symptoms
CPT/HCPCS: 36415; 71045; 78452; 80048; 80053; 80061; 82550; 82553; 82962; 83036; 83690; 83735; 83880; 84484; 85025; 85610; 85730; 93005; 93017; 93306; 99285-25; G0378

== ENCOUNTER 2018-08-29 07:11 | Day surgery (SDC) | payer MEDICARE, MEDICAID ==
[2018-08-29 08:19] LABS: ADD MAN DIFF? NO
[2018-08-29 08:24] LABS: WHITE BLOOD COUNT 6.2 10^3/ul (4.8-10.8)
[2018-08-29 08:24] LABS: BASOPHIL # 0.1 10^3/ul (0.0-0.1); EOSINOPHILS # 0.4 10^3/ul (0.0-0.5); EOSINOPHILS % 5.8 % (0.0-7.0); HEMOGLOBIN 12.3 g/dl (14.0-18.0); LYMPHOCYTES # 1.6 10^3/ul (0.8-2.9); MEAN CORPUSCULAR HEMOGLOBIN 29.1 pg (29.0-33.0); MEAN CORPUSCULAR HGB CONC 32.4 g/dl (32.0-37.0); MEAN CORPUSCULAR VOLUME 89.8 fl (82.0-101.0); MEAN PLATELET VOLUME 11.1 fl (7.4-10.4); MONOCYTE # 0.4 10^3/ul (0.3-0.9); MONOCYTES % 6.6 % (0.0-11.0); NEUTROPHIL # 3.8 10^3/ul (1.6-7.5); NEUTROPHILS % 61.1 % (39.0-77.0); PLATELET COUNT 197 10^3/UL (140-415); RED BLOOD COUNT 4.23 10^6/ul (4.70-6.10); RED CELL DISTRIBUTION WIDTH 13.4 % (11.5-14.5)
[2018-08-29] MEDS: FAMOTIDINE 20 MG TAB PO (08:39)
[2018-08-29] MEDS: DIPHENHYDRAMINE 50 MG CAP PO (08:39)
[2018-08-29] MEDS: DIAZEPAM 5 MG TAB PO (08:39)
[2018-08-29 08:43] LABS: ALANINE AMINOTRANSFERASE 49 IU/L (13-69); ALBUMIN/GLOBULIN RATIO 1.17; ALKALINE PHOSPHATASE 80 IU/L (42-121); ANION GAP 7 (5-13); ASPARTATE AMINO TRANSFERASE 42 IU/L (15-46); BILIRUBIN,INDIRECT 0.1 mg/dl (0-1.1); BILIRUBIN,TOTAL 0.1 mg/dl (0.2-1.3); BLOOD UREA NITROGEN 16 mg/dl (7-20); CALCIUM 9.6 mg/dl (8.4-10.2); CARBON DIOXIDE 24 mmol/L (21-31); CHLORIDE 111 mmol/L (97-110); CHOL/HDL RATIO 3.8 RATIO; CHOLESTEROL 155 mg/dl (100-200); CREATININE 1.03 mg/dl (0.61-1.24); Estimated GFR > 60 mL/min (>60); GLUCOSE 173 mg/dl (70-220); HDL CHOLESTEROL 40 mg/dl (30-78); LDL CHOLESTEROL,CALCULATED 91 mg/dl; POTASSIUM 4.5 mmol/L (3.5-5.1); SODIUM 142 mmol/L (135-144); TOTAL PROTEIN 7.4 g/dl (6.1-8.1); TRIGLYCERIDES 118 mg/dl (0-149)
[2018-08-29 08:44] LABS: INR 0.85; PROTIME 11.7 Sec (11.9-14.9); PT RATIO 0.9
[2018-08-29 08:45] LABS: PARTIAL THROMBOPLASTIN TIME 25.2 Sec (23.0-35.0)
[2018-08-29] MEDS ORDERED: HEPARIN 1000 UNITS/ML 10 ML INJ (09:10)
[2018-08-29] MEDS ORDERED: NITROGLYCERIN (IC) 100 MCG/ML INJ (09:11)
[2018-08-29] MEDS ORDERED: FENTAnyl 50 MCG/ML VIAL (09:11)
[2018-08-29] MEDS ORDERED: VERAPAMIL 5 MG INJ (09:11)
[2018-08-29] MEDS ORDERED: MIDAZOLAM 1 MG/ML 2 ML INJ (09:11)
[2018-08-29] MEDS ORDERED: SOD CHLORIDE 0.9% 1,000 ML IV (11:25)
[2018-08-29] MEDS ORDERED: LIDOCAINE 1% (MDV) 20 ML INJ (11:27)
[2018-08-29] MEDS ORDERED: IODIXANOL LOCM 100 ML BTL (11:27)
[2018-08-29] MEDS ORDERED: AL HYDROX/MG HYDROX/SIMETH 30 ML CUP PO (11:30)
[2018-08-29] MEDS ORDERED: morphine 2 MG INJ IV (11:30)
[2018-08-29] MEDS ORDERED: ACETAMINOPHEN 325 MG TAB PO (11:30)
[2018-08-29] MEDS ORDERED: ONDANSETRON 4 MG INJ IV (11:30)
== END 2018-08-29 16:30 | disposition home or self-care (01) ==
LOC: CCL 07:11 → SDS 07:11 → CCL 16:30
DX: I25.10 Atherosclerotic heart disease of native coronary artery without angina pectoris (principal); I10 Essential (primary) hypertension; E78.5 Hyperlipidemia, unspecified; E11.9 Type 2 diabetes mellitus without complications; Z79.82 Long term (current) use of aspirin; Z79.84 Long term (current) use of oral hypoglycemic drugs
CPT/HCPCS: 71045; 80053; 80061; 82962; 85025; 85610; 85730; 93005; 93458

== ENCOUNTER 2018-10-11 15:22 | Emergency (ER) | payer MEDICARE, OTHER, MEDICAID ==
[2018-10-11 15:58] LABS: URINE BLOOD (Dip) POC Negative (NEGATIVE); URINE KETONES (Dip) POC Negative (NEGATIVE); URINE LEUKOCYTE EST (Dip) POC Negative (NEGATIVE); URINE NITRITE (Dip) POC Negative (NEGATIVE); URINE TOTAL PROTEIN POC Negative (NEGATIVE)
[2018-10-11 15:58] LABS: URINE PH (Dip) POC 5.5 (5.0-8.5)
[2018-10-11 16:28] LABS: ADD UMIC NO; UR ASCORBIC ACID 40 mg/dL (NEGATIVE); UR BILIRUBIN (Dip) NEGATIVE (NEGATIVE); UR BLOOD (Dip) NEGATIVE (NEGATIVE); UR CLARITY CLEAR (CLEAR); UR COLOR YELLOW (YELLOW); UR GLUCOSE (Dip) 3+ mg/dL (NEGATIVE); UR KETONES (Dip) NEGATIVE (NEGATIVE); UR LEUKOCYTE ESTERASE (Dip) NEGATIVE Leu/ul (NEGATIVE); UR NITRITE (Dip) NEGATIVE (NEGATIVE); UR SPECIFIC GRAVITY (Dip) 1.015 (1.003-1.030); UR TOTAL PROTEIN (Dip) NEGATIVE (NEGATIVE); UR UROBILINOGEN (Dip) NEGATIVE (NEGATIVE)
== END 2018-10-11 17:54 | disposition home or self-care (01) ==
LOC: FTE 15:22
DX: R30.0 Dysuria (principal); Z79.84 Long term (current) use of oral hypoglycemic drugs
CPT/HCPCS: 74176; 81003; 99284-25

== ENCOUNTER 2018-11-20 11:33 | Emergency (ER) | payer MEDICARE | END 2018-11-20 13:00 | disposition home or self-care (01) | LOC: FTE 11:33 | DX: H11.31 Conjunctival hemorrhage, right eye (principal); I10 Essential (primary) hypertension; Z79.84 Long term (current) use of oral hypoglycemic drugs | CPT/HCPCS: 99283 ==

== ENCOUNTER 2018-12-09 06:48 | Day surgery (SDC) | payer MEDICARE ==
[2018-12-09] MEDS ORDERED: LIDOCAINE 100 MG SYRINGE (09:50)
[2018-12-09] MEDS ORDERED: PROPOFOL 40 ML (09:50)
== END 2018-12-09 11:47 | disposition home or self-care (01) ==
LOC: GIL 06:48
DX: Z86.010 Personal history of colon polyps (principal); E11.9 Type 2 diabetes mellitus without complications; I10 Essential (primary) hypertension; E78.5 Hyperlipidemia, unspecified; Z79.84 Long term (current) use of oral hypoglycemic drugs
CPT/HCPCS: 45378; 82962